=== PATIENT | male | born 1945 | race Caucasian/White ===

== ENCOUNTER 2024-02-16 14:26 | Outpatient (CLI) | payer MEDICARE, OTHER | END 2024-02-16 14:27 | disposition home or self-care (01) | LOC: CT 14:26 | PROVIDERS: ATTEND Internal Medicine Hematology & Oncology | DX: C61 Malignant neoplasm of prostate (principal); C79.51 Secondary malignant neoplasm of bone; M48.00 Spinal stenosis, site unspecified; Z79.899 Other long term (current) drug therapy; M47.814 Spondylosis without myelopathy or radiculopathy, thoracic region; M48.04 Spinal stenosis, thoracic region | CPT/HCPCS: 72128; 72131 ==